=== PATIENT | male | born 1925 | race Caucasian/White ===

== ENCOUNTER 2016-12-24 12:52 | Emergency (ER) | payer MEDICARE ==
[2016-12-24] MEDS ORDERED: Pantoprazole 40 MG VIAL ONE (13:37)
[2016-12-24 13:54] LABS: ALT (SGPT) 22 U/L (8-55); AST (SGOT) 24 U/L (5-34); Albumin 3.8 g/dL (3.4-4.8); Alkaline Phosphatase 85 U/L (40-150); Anion Gap 15 mmol/L (10-20); BUN (Urea Nitrogen) 36 mg/dL (8.4-25.7); Bilirubin, Total 0.7 mg/dL (0.2-1.2); Calc. Creatinine Clearance 0 mL/min (70-130); Calcium 9.8 mg/dL (7.8-10.44); Carbon Dioxide 25 mmol/L (23-31); Chloride 106 mmol/L (98-107); Estimated GFR-MDRD 37; Globulin 3.8 g/dL (2.4-3.5); Glucose 185 mg/dL (83-110); Protein, Total 7.6 g/dL (5.8-8.1); Sodium 141 mmol/L (136-145)
[2016-12-24] MEDS ORDERED: methylPREDNISolone Sod Succ/PF 125 MG/2 ML VIAL ONE (13:57)
[2016-12-24 14:20] LABS: #Basophils 0.1 thou/uL (0.0-0.2); #Eosinphils 0.1 thou/uL (0.0-0.7); #Lymphocytes 1.1 thou/uL (1.20-3.40); #Monocytes 0.6 thou/uL (0.11-0.59); #Neutrophils 4.6 thou/uL (1.40-6.50); %Basophils 0.9 % (0.0-1.0); %Eosinophils 1.3 % (0.0-10.0); %Lymphocytes 17.4 % (21.0-51.0); %Monocytes 8.8 % (0.0-10.0); %Neutrophils 71.7 % (42.0-75.0); Hemoglobin 12.9 g/dL (14.0-18.0); Mean Corpuscular HGB CONC 32.8 g/dL (32.0-36.0); Mean Corpuscular Volume 88.6 fl (80.0-94.0); Mean Platelet Volume 9.5 fL (7.4-10.4); Platelet Count 118 thou/uL (130-400); Red Blood Cell (RBC) Count 4.45 mill/uL (4.70-6.10); White Blood Cell (WBC) Count 6.4 thou/uL (4.8-10.8)
[2016-12-24 14:23] LABS: PLT Morphology Comment DECREASED
== END 2016-12-24 15:11 | disposition short-term general hospital (02) ==
LOC: BURERS 12:52
DX: K92.2 Gastrointestinal hemorrhage, unspecified (principal); K92.1 Melena; E10.9 Type 1 diabetes mellitus without complications; I25.10 Atherosclerotic heart disease of native coronary artery without angina pectoris; I10 Essential (primary) hypertension; Z79.899 Other long term (current) drug therapy; Z86.73 Personal history of transient ischemic attack (TIA), and cerebral infarction without residual deficits
CPT/HCPCS: 80053; 82274; 85025; 96374; C9113; J2930

== ENCOUNTER 2017-01-09 15:01 | Inpatient (IN) | payer MEDICARE ==
[2017-01-09 15:32] LABS: #Basophils 0.1 thou/uL (0.0-0.2); #Eosinphils 0.2 thou/uL (0.0-0.7); #Lymphocytes 1.2 thou/uL (1.20-3.40); #Monocytes 0.7 thou/uL (0.11-0.59); %Basophils 0.8 % (0.0-1.0); %Eosinophils 2.5 % (0.0-10.0); %Lymphocytes 16.2 % (21.0-51.0); %Monocytes 10.2 % (0.0-10.0); %Neutrophils 70.3 % (42.0-75.0); Hemoglobin 10.5 g/dL (14.0-18.0); Mean Corpuscular HGB CONC 32.7 g/dL (32.0-36.0); Mean Corpuscular Hemoglobin 28.9 pg (27.0-31.0); Mean Corpuscular Volume 88.3 fl (80.0-94.0); Mean Platelet Volume 7.9 fL (7.4-10.4); Platelet Count 142 thou/uL (130-400); Red Blood Cell (RBC) Count 3.63 mill/uL (4.70-6.10); White Blood Cell (WBC) Count 7.1 thou/uL (4.8-10.8)
[2017-01-09 15:34] LABS: INR-International Normal Ratio 1.1; PTT 32.6 SEC (22.9-36.1); Prothrombin Time 13.8 SEC (12.0-14.7)
[2017-01-09 15:43] LABS: ALT (SGPT) 18 U/L (8-55); AST (SGOT) 18 U/L (5-34); Alkaline Phosphatase 97 U/L (40-150); Anion Gap 16 mmol/L (10-20); BUN (Urea Nitrogen) 32 mg/dL (8.4-25.7); Bilirubin, Total 0.5 mg/dL (0.2-1.2); Calc. Creatinine Clearance 0 mL/min (70-130); Carbon Dioxide 22 mmol/L (23-31); Chloride 109 mmol/L (98-107); Estimated GFR-MDRD 40; Globulin 3.7 g/dL (2.4-3.5); Glucose 139 mg/dL (83-110); Potassium 4.6 mmol/L (3.5-5.1); Protein, Total 7.7 g/dL (5.8-8.1); Sodium 142 mmol/L (136-145)
[2017-01-09 15:45] LABS: CKMB 1.9 ng/mL (0-6.6); Troponin I 0.015 ng/mL (< 0.028)
[2017-01-09] MEDS ORDERED: Furosemide 40 MG/4 ML VIAL ONE (16:02)
--- NOTE | 2017-01-09 16:30 | RAD ---
PORTABLE CHEST 01/09/17 An AP portable film at 1519 is compared with a 10/30/09 study. The heart is slightly larger than it was before but is still normal in size for an AP film. The lung s are clear. No acute infiltrate or effusion was seen. There is no congestion or edema. The trachea is midline. IMPRESSION: No acute finding. POS: HOME
[2017-01-09 16:36] LABS: Bilirubin Negative (Negative); Blood, Urine Negative (Negative); Clarity Clear (Clear); Glucose, Urine (Dipstick) Negative (Negative); Leukocyte Negative (Negative); Nitrite Negative (Negative); Protein, Urine (Dipstick) Negative (Neg-Trace); Urobilinogen 0.2 mg/dL (0.2-1.0); pH, Urine 5.5 (5.0-9.0)
[2017-01-09] MEDS ORDERED: Acetaminophen 325 MG TAB PO PRN ×2 (18:57→19:33)
[2017-01-09] MEDS ORDERED: Ondansetron HCl/PF 4 MG/2 ML Vial SLOW IVP PRN (19:33)
[2017-01-09] MEDS ORDERED: Ondansetron ODT 4 MG TAB PO PRN (19:33)
[2017-01-09] MEDS: Metoprolol Tartrate 25 MG TAB PO SCH (21:13)
[2017-01-09] MEDS: Famotidine 20 MG TAB PO SCH (21:13)
[2017-01-09] MEDS: Lisinopril 10 MG TAB PO SCH (21:14)
[2017-01-09] MEDS: Levemir Flexpen 100 UNITS/ML PEN SC SCH (21:14)
[2017-01-09] MEDS: Fish Oil 1,000 MG CAP PO SCH (21:14)
[2017-01-10] MEDS ORDERED: Furosemide 40 MG/4 ML VIAL ONE ×2 (05:23→16:17)
[2017-01-10] MEDS: Furosemide 40 MG/4 ML VIAL SLOW IVP SCH ×2 (05:40→16:20)
[2017-01-10 05:57] LABS: #Eosinphils 0.1 thou/uL (0.0-0.7); #Monocytes 0.7 thou/uL (0.11-0.59); #Neutrophils 4.1 thou/uL (1.40-6.50); %Basophils 0.8 % (0.0-1.0); %Eosinophils 2.2 % (0.0-10.0); %Lymphocytes 17.4 % (21.0-51.0); %Monocytes 10.9 % (0.0-10.0); %Neutrophils 68.7 % (42.0-75.0); Hemoglobin 9.4 g/dL (14.0-18.0); Mean Corpuscular HGB CONC 33.2 g/dL (32.0-36.0); Mean Corpuscular Hemoglobin 28.8 pg (27.0-31.0); Mean Corpuscular Volume 86.9 fl (80.0-94.0); Mean Platelet Volume 6.9 fL (7.4-10.4); Platelet Count 132 thou/uL (130-400); RBC Distribution Width 13.5 % (11.5-14.5); Red Blood Cell (RBC) Count 3.27 mill/uL (4.70-6.10); White Blood Cell (WBC) Count 5.9 thou/uL (4.8-10.8)
[2017-01-10 06:13] LABS: ALT (SGPT) 14 U/L (8-55); AST (SGOT) 17 U/L (5-34); Albumin 3.6 g/dL (3.4-4.8); Alkaline Phosphatase 90 U/L (40-150); Anion Gap 14 mmol/L (10-20); BUN (Urea Nitrogen) 34 mg/dL (8.4-25.7); Bilirubin, Total 0.4 mg/dL (0.2-1.2); Calc. Creatinine Clearance 38 mL/min (70-130); Calcium 9.6 mg/dL (7.8-10.44); Carbon Dioxide 22 mmol/L (23-31); Chloride 110 mmol/L (98-107); Estimated GFR-MDRD 41; Globulin 3.4 g/dL (2.4-3.5); Glucose 147 mg/dL (83-110); Potassium 4.2 mmol/L (3.5-5.1); Sodium 142 mmol/L (136-145)
[2017-01-10 06:15] LABS: CKMB 1.2 ng/mL (0-6.6)
[2017-01-10] MEDS: Levemir Flexpen 100 UNITS/ML PEN SC SCH ×2 (08:55→20:45)
[2017-01-10] MEDS: Loratadine 10 MG TAB PO SCH (09:00)
[2017-01-10] MEDS ORDERED: Tamsulosin HCl 0.4 MG CAP PO SCH ×2 (09:00→21:00)
[2017-01-10] MEDS ORDERED: Atorvastatin Calcium 10 MG TAB PO SCH ×2 (09:00→21:00)
[2017-01-10] MEDS: Fish Oil 1,000 MG CAP PO SCH ×2 (09:01→20:52)
[2017-01-10] MEDS: Lisinopril 10 MG TAB PO SCH ×2 (09:01→20:54)
[2017-01-10] MEDS: Hydrochlorothiazide 25 MG TAB PO SCH (09:02)
[2017-01-10] MEDS: Metoprolol Tartrate 25 MG TAB PO SCH ×2 (09:03→20:54)
--- NOTE | 2017-01-10 10:03 | HP ---
DATE OF ADMISSION: 01/09/2017 CHIEF COMPLAINT: Shortness of breath with lower extremity swelling. HISTORY OF PRESENT ILLNESS: An 89-year-old male who presented to [facility] with complaints of recent increased shortness of breath, swelling to bilateral lower extremities and generalized weakness. Lab work was obtained with a BNP notably elevated at 553. In addition to this, the patient' s usual weight fluctuates between 175 to 180 pounds; however, his current weight on presentation is 188 pounds. The patient did have a recent admission at [facility] approximately 2 weeks ago where he presented with a GI bleed and during his stay was subsequently evaluated on telemetry and found to have atrial fibrillation and thus he was started on metoprolol 12.5 mg b.i.d. at that time. He has been advised to abstain from anticoagulation or on any anticoagulation therapy secondary to his recent GI bleed. He reports no further bleeding per rectum since discharge and his hemoglobin is stable at 10.5 , which is consistent with where it was at the time of discharge a couple weeks ago. During his admission, a TTE was performed showing normal left ventricular size and wall thickness with an ejection fraction of 60%-65%; there was E/A slow reversal noted suggestive of diastolic function; no regional wall motion abnormalities or evidence of stenosis with normal aortic valve structure and function with aortic valve reflux, mildly thickened with overall preserved opening. He has been instructed to follow up with Dr. Mcfadden, Cardiology on 01/18. Of note, prior to the patient's admission, he had been evaluated in his home setting by [facility] and had notably held his SELVIN inhibitor secondary to low blood pressure readings last week; however, prior to his presentation, his blood pressure had notably risen with a systolic blood pressure into the 160s and 170s. Secondary to the patient's volume overload, he will be admitted for CHF exacerbation with noted history of diastolic dysfunction. 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 PAST SURGICAL HISTORY: Polypectomy, status post bilateral carpal tunnel release , appendectomy, bilateral cataract surgery. ALLERGIES: No known drug allergies. FAMILY HISTORY: Noncontributory. SOCIAL HISTORY: Patient is , lives with his and in [place]. Denies alcohol, tobacco or illicit drug use. CURRENT MEDICATIONS: Acetaminophen 325 mg p.o. q.8 hours p.r.n., Lipitor 20 mg p.o. daily, vitamin B12 at 1000 mcg p.o. daily, Levemir 75 units subcu a.m. and 35 to 65 units subcu p.m., Zestril 10 mg p.o. b.i.d., metoprolol tartrate 12.5 mg p.o. b.i.d., [place] 3 fatty acid 1 capsule p.o. b.i.d., Ranitidine 150 mg p.o. b.i.d., Flomax 0.4 mg p.o. daily. REVIEW OF SYSTEMS: General: Denies fever, complains of some fatigue. Ear, Nose, and Throat: Denies sore throat, nasal drainage or congestion. Cardiovascular: Denies chest pain or palpitations. Respiratory: Denies cough , has had some shortness of breath. Gastrointestinal: Denies abdominal pain, nausea, vomiting, diarrhea, constipation, hematochezia or melena. Genitourinary : Denies dysuria. Musculoskeletal: Denies joint swelling. Dermatologic: Denies rash. Neurologic: Denies headache. LABORATORY DATA: White blood cell count 7.1, H\T\H of 10.5 and 32. Sodium 142 , potassium 4.6. BUN 32, creatinine 1.64 with a GFR of 40. Glucose 139. Cardiac enzymes normal, BNP 553.8. X-RAY FINDINGS: Chest x-ray shows no acute findings. PHYSICAL EXAMINATION: VITAL SIGNS: Temperature 97.4, pulse 78, respiratory rate 18, oxygen at 98% on room air, blood pressure 149/67. GENERAL: The patient is well-appearing, alert and oriented, in no acute distress. HEENT: Pupils are equal, round, and reactive to light. Extraocular muscles are intact. Moist mucous membranes. NECK: Supple, with no adenopathy, no thyromegaly, no JVD. CARDIOVASCULAR: Regular rate and rhythm, normal S1, S2 with no murmurs, rubs or gallops. RESPIRATORY: Clear to auscultation bilaterally with no wheezes, rales or rhonchi. No respiratory distress. ABDOMEN: Soft, nontender, nondistended. No masses. Bowel sounds are positive. EXTREMITIES: No clubbing or cyanosis. There is trace edema to bilateral lower extremities. NEUROLOGICAL: Nonfocal. Cranial nerves II through XII are grossly intact. ASSESSMENT AND PLAN: 1. Congestive heart failure exacerbation with diastolic dysfunction. Patient has been provided IV Lasix in the ER setting; we will continue once daily 40 mg IV Lasix for now and monitor daily weights. The patient is otherwise hemodynamically stable. The patient reports a dry weight of 175 to 180. We will likely discharge the patient on 20 mg of Lasix for p.r.n. use daily. Discussed with him the need for monitoring daily weight at home along with the assessment of his lower extremity edema and as stated, he is scheduled for followup with Cardiology, Dr. Mcfadden on 01/18/2017. There is notable possibility that he may have decompensated somewhat secondary to recent initiation of his Beta-uche for atrial fibrillation findings during his recent admission a couple of weeks ago; however, we will continue his current medication regimen at this point. We will trend his BNP as well. 2. Hypertension. The patient is hemodynamically stable, we will continue his usual medications with addition of Lasix for the time being. 3. Insulin-dependent type 2 diabetes mellitus. We will continue his home regimen with a.c. and at bedtime Glucose checks. 4. Chronic kidney stage 3. We will obtain a obtain a fractional excretion of urea to further assess his current renal function and suspect that it is most likely due to his congestive heart failure regarding a slight decline in his baseline GFR. We would expect that this should improve with contraction of his volume status. 5. Atrial fibrillation, recent diagnosis and paroxysmal in nature. As noted per HPI, he has been advised against anticoagulant therapy secondary to his recent gastrointestinal bleed. He is currently rate controlled on his Beta- uche. 6. Prophylaxis. We will provide sequential compression devices in light of inability to have anticoagulant therapy. We will continue his home H2 uche. [facility]
[2017-01-10 10:23] LABS: CKMB 1.3 ng/mL (0-6.6); Troponin I 0.023 ng/mL (< 0.028)
[2017-01-10 15:42] LABS: Creatinine, Urine Less than 20.00 mg/dL (63-166); Sodium, Urine 141 mmol/L (Not Available); Urea Nitrogen, Random Urine 126 mg/dl
[2017-01-10] MEDS: Famotidine 20 MG TAB PO SCH (20:52)
[2017-01-11 04:11] VITALS: BMI 27.6
[2017-01-11] MEDS ORDERED: Furosemide 40 MG/4 ML VIAL ONE (04:52)
[2017-01-11] MEDS: Furosemide 40 MG/4 ML VIAL SLOW IVP SCH (05:38)
[2017-01-11 05:58] VITALS: TEMP 97.4
[2017-01-11 06:02] LABS: ALT (SGPT) 10 U/L (8-55); AST (SGOT) 14 U/L (5-34); Albumin 3.4 g/dL (3.4-4.8); Alkaline Phosphatase 81 U/L (40-150); Anion Gap 14 mmol/L (10-20); BUN (Urea Nitrogen) 40 mg/dL (8.4-25.7); Bilirubin, Total 0.4 mg/dL (0.2-1.2); Calc. Creatinine Clearance 29 mL/min (70-130); Calcium 9.4 mg/dL (7.8-10.44); Carbon Dioxide 24 mmol/L (23-31); Chloride 107 mmol/L (98-107); Estimated GFR-MDRD 31; Globulin 3.2 g/dL (2.4-3.5); Glucose 63 mg/dL (83-110); Potassium 3.9 mmol/L (3.5-5.1); Protein, Total 6.6 g/dL (5.8-8.1); Sodium 141 mmol/L (136-145)
[2017-01-11 06:41] LABS: #Basophils 0.1 thou/uL (0.0-0.2); #Eosinphils 0.1 thou/uL (0.0-0.7); #Lymphocytes 1.2 thou/uL (1.20-3.40); #Monocytes 0.7 thou/uL (0.11-0.59); #Neutrophils 4.2 thou/uL (1.40-6.50); %Basophils 0.9 % (0.0-1.0); %Eosinophils 2.3 % (0.0-10.0); %Lymphocytes 19.1 % (21.0-51.0); %Monocytes 11.3 % (0.0-10.0); %Neutrophils 66.4 % (42.0-75.0); Hemoglobin 9.4 g/dL (14.0-18.0); Mean Corpuscular HGB CONC 32.2 g/dL (32.0-36.0); Mean Corpuscular Hemoglobin 28.2 pg (27.0-31.0); Mean Corpuscular Volume 87.6 fl (80.0-94.0); Mean Platelet Volume 8.4 fL (7.4-10.4); Platelet Count 130 thou/uL (130-400); RBC Distribution Width 13.8 % (11.5-14.5); Red Blood Cell (RBC) Count 3.32 mill/uL (4.70-6.10); White Blood Cell (WBC) Count 6.3 thou/uL (4.8-10.8)
[2017-01-11] MEDS: Metoprolol Tartrate 25 MG TAB PO SCH (08:32)
[2017-01-11] MEDS: Fish Oil 1,000 MG CAP PO SCH (08:33)
[2017-01-11] MEDS: Loratadine 10 MG TAB PO SCH (08:33)
[2017-01-11] MEDS: Lisinopril 10 MG TAB PO SCH (08:33)
[2017-01-11] MEDS: Hydrochlorothiazide 25 MG TAB PO SCH (08:33)
[2017-01-11] MEDS: Levemir Flexpen 100 UNITS/ML PEN SC SCH (08:34)
[2017-01-11 08:35] VITALS: BP 112/69
--- NOTE | 2017-01-11 11:43 | DIS ---
DATE OF ADMISSION: 01/09/2017 DATE OF DISCHARGE: 01/11/2017 ADMISSION DIAGNOSES: Congestive heart failure exacerbation, diastolic dysfunction, hypertension, in sulin-dependent type 2 diabetes mellitus, chronic kidney disease stage 3, atrial fibrillation. DISCHARGE DIAGNOSES: Congestive heart failure exacerbation, diastolic dysfunction, hypertension, in sulin-dependent type 2 diabetes mellitus, chronic kidney disease stage 3, atrial fibrillation. PROCEDURES: Chest x-ray on 01/09/2017 showed no acute findings. HOSPITAL COURSE: An 89-year-old male who presented to [facility] with symptomati c shortness of breath, weight gain, swelling to bilateral lower extremities and weakness. A subsequ ent workup revealed the patient to be volume overloaded. The patient had a recent TTE, which was co nsistent with diastolic dysfunction. He was admitted and started on IV Lasix therapy. The patient' s dry weight is approximately 175-180, his weight up on admission was 188, which trended down to 184 and then 182 pounds. His presenting symptoms dissipated and he steadily improved. He remained hem odynamically stable throughout. He has a scheduled followup with Cardiology, Dr. Mcfadden in 1 week, wh ich is largely related to recent hospitalization a couple weeks ago for GI bleed in which he was sub sequently found to have atrial fibrillation; he was started on beta uche at that time, which has been continued and this may have been a nidus for decompensation and development of admitting sympto ms. The patient's initial BNP was 553 and this trended down to 540 and then 424. The patient also did present with prerenal azotemia, which initially improved and then worsened again most likely sec ondary to the Lasix, he received here. We will plan to provide the patient with 20 mg p.o. Lasix da kelly on a p.r.n. basis, subsequent to his weights to be checked at home along with whether or not he is symptomatic and whether or not he is having lower extremity edema. He does have a [facility] set up who can further follow up in regards to this. DISPOSITION: The patient will discharge home where he lives alone; however, on property with family members. In addition, he will have [facility] to provide further followup. He has a bhumika eduled followup with Dr. Mcfadden, Cardiology in 1 week from now on 01/18/2017, and we will ask the blu ent to follow up with myself in a week as well for followup CBC and metabolic panel in regards to brii walker to follow up his renal function and CBC from recent GI bleed. DISCHARGE MEDICATIONS: We will resume his usual home medications, which include acetaminophen 325 m g p.o. q.8 hours p.r.n., Lipitor 20 mg p.o. at bedtime, vitamin B12 of 1000 mcg p.o. daily, Levemir 75 units subcutaneously a.m. and 35-55 units subcutaneously p.m., Zestril 10 mg p.o. b.i.d., metopro lol tartrate 12.5 mg p.o. b.i.d., omega 3 fatty acid 1 capsule p.o. b.i.d., ranitidine 150 mg p.o. b .i.d., Flomax 0.4 mg p.o. daily and one new medication will be furosemide 20 mg p.o. daily p.r.n.
== END 2017-01-11 10:17 | disposition home health service (06) | DRG 291 ==
LOC: BURERS 15:01 → BURMED 17:00
PROVIDERS: ADMIT Family Medicine; ATTEND Family Medicine
DX: I13.0 Hypertensive heart and chronic kidney disease with heart failure and stage 1 through stage 4 chronic kidney disease, or unspecified chronic kidney disease (principal); I50.33 Acute on chronic diastolic (congestive) heart failure; E11.22 Type 2 diabetes mellitus with diabetic chronic kidney disease; I48.0 Paroxysmal atrial fibrillation; N18.3 Chronic kidney disease, stage 3 (moderate); Z79.4 Long term (current) use of insulin; I25.10 Atherosclerotic heart disease of native coronary artery without angina pectoris; N40.0 Benign prostatic hyperplasia without lower urinary tract symptoms; Z85.46 Personal history of malignant neoplasm of prostate; K21.9 Gastro-esophageal reflux disease without esophagitis; Z86.73 Personal history of transient ischemic attack (TIA), and cerebral infarction without residual deficits
CPT/HCPCS: 36415; 36416; 71010; 80053; 81003; 82274; 82553; 82570; 83880; 84300; 84484; 84540; 85025; 85610; 85730; 93005; 94760; 96374; A4216; J1815; J1940